=== PATIENT | female | born 1945 | race Caucasian/White ===

== ENCOUNTER 2016-12-03 08:00 | Outpatient (CLI) | payer MEDICARE, OTHER | END 2016-12-03 08:01 | disposition home or self-care (01) | DX: E11.9 Type 2 diabetes mellitus without complications (principal); R89.9 Unspecified abnormal finding in specimens from other organs, systems and tissues ==

== ENCOUNTER 2017-03-30 12:46 | Outpatient (CLI) | payer MEDICARE, OTHER ==
[2017-03-30 18:35] LABS: HEMOGLOBIN A1C 0.6 g/dL
[2017-03-30 18:43] LABS: CALCIUM 9.3 mg/dL (8.5-10.3); POTASSIUM 4.3 mmol/L (3.5-5.0)
== END 2017-03-30 12:47 | disposition home or self-care (01) ==
LOC: LAB.F 12:46
PROVIDERS: ATTEND Physician Assistant Medical
DX: E11.9 Type 2 diabetes mellitus without complications (principal); I10 Essential (primary) hypertension
CPT/HCPCS: 36415; 80048; 82043; 82570; 83036

== ENCOUNTER 2017-04-06 11:14 | Outpatient (CLI) | payer MEDICARE, OTHER ==
--- NOTE | 2017-04-08 08:57 | Mammography Report ---
DIGITAL BILATERAL SCREENING MAMMOGRAPHY: 04/06/2017 CLINICAL HISTORY: This is a 72-year-old female in for routine screening mammogram. Patient has no f amily history of breast cancer. Patient has had no prior breast surgeries. COMPARISON: 03/24/2009, 05/22/2010, 09/28/2011, 07/29/2013, 08/08/2014 TECHNIQUE: Craniocaudad and oblique lateral views of each breast were obtained with [facility] digital mammography. Because the patient had such large breasts, several additional oblique later al and craniocaudad views had to be obtained. FINDINGS: Extremely dense breasts are noted bilaterally. No significant clusters of calcification a re seen. No significant masses are noted. No change is seen. IMPRESSION: BREASTS APPEAR RADIOGRAPHICALLY BENIGN. BIRADS CATEGORY 1 - NEGATIVE. RECOMMENDATIONS: Annual bilateral screening mammography. STANDARD QUALIFYING STATEMENTS 1. This examination was reviewed with the aid of Computer-Aided Detection (CAD). 2. A negative or benign imaging report should not delay biopsy if clinically suspicious findings are present. Consider surgical consultation if warranted. More than 5% of cancers are not identified by i ing. 3. Dense breasts may obscure an underlying neoplasm. JOB #: [id number] EXT JOB #:[id number]
== END 2017-04-06 11:15 | disposition home or self-care (01) ==
LOC: DI 11:14
PROVIDERS: ATTEND Family Medicine
DX: Z12.31 Encounter for screening mammogram for malignant neoplasm of breast (principal)
CPT/HCPCS: 77067

== ENCOUNTER 2018-01-04 08:27 | Outpatient (CLI) | payer MEDICARE, OTHER ==
[2018-01-04 11:11] LABS: BASOPHILS % (AUTO) 0.4 %; EOSINOPHILS # (AUTO) 0.2 10^3/uL (0.0-0.7); EOSINOPHILS % (AUTO) 2.9 %; HGB - HEMOGLOBIN 13.2 g/dL (12.0-16.0); LYMPHOCYTES # (AUTO) 1.9 10^3/uL (1.5-3.5); LYMPHOCYTES % (AUTO) 23.2 %; MEAN CORPUSCULAR HEMOGLOBIN 28.4 pg (27.0-31.0); MEAN CORPUSCULAR HGB CONC 34.2 g/dL (32.0-36.0); MEAN PLATELET VOLUME 9.3 fL (7.9-10.8); MONOCYTES # (AUTO) 0.5 10^3/uL (0.0-1.0); MONOCYTES % (AUTO) 5.8 %; NEUTROPHILS # (AUTO) 5.6 10^3/uL (1.5-6.6); NEUTROPHILS % (AUTO) 67.7 %; PLT - PLATELET COUNT 220 10^3/uL (130-450); RED BLOOD COUNT 4.66 10^6/uL (4.20-5.40); RED CELL DISTRIBUTION WIDTH 13.9 % (12.0-15.0); WHITE BLOOD COUNT 8.3 x10^3/uL (4.8-10.8)
[2018-01-04 11:23] LABS: ALBUMIN/GLOBULIN RATIO 1.3 (1.0-2.2); ALKALINE PHOSPHATASE 83 IU/L (42-121); ALT ALANINE AMINOTRANSFERASE 19 IU/L (10-60); AST ASPARTATE AMINOTRANSFERASE 24 IU/L (10-42); BUN - BLOOD UREA NITROGEN 16 mg/dL (6-20); CALCIUM 9.1 mg/dL (8.5-10.3); CARBON DIOXIDE - CO2 26 mmol/L (21-32); CHLORIDE 103 mmol/L (101-111); CHOL/HDL RATIO 4.2 (<4.4); CHOLESTEROL 192 mg/dL; CREATININE 0.9 mg/dL (0.4-1.0); GFR - MDRD 62 (>89); GLUCOSE 141 mg/dL (70-100); HB2 TOTAL 14.7 g/dL; HDL CHOLESTEROL 46 mg/dL; HEMOGLOBIN A1C 0.7 g/dL; HEMOGLOBIN A1C % 6.5 % (4.6-6.2); LDL CHOLESTEROL,CALCULATED 114 mg/dL; LDL/HDL RATIO 2.5 (<4.4); SODIUM 138 mmol/L (135-145); VLDL CHOLESTEROL 32 mg/dL
== END 2018-01-04 08:28 | disposition home or self-care (01) ==
LOC: LAB.F 08:27
PROVIDERS: ATTEND Family Medicine
DX: I10 Essential (primary) hypertension (principal); E11.9 Type 2 diabetes mellitus without complications; E78.5 Hyperlipidemia, unspecified
CPT/HCPCS: 36415; 80053; 80061; 82043; 83036; 83721; 85025

== ENCOUNTER 2018-07-21 09:16 | Outpatient (CLI) | payer MEDICARE, OTHER ==
[2018-07-21 18:55] LABS: HB2 TOTAL 14.5 g/dL; HEMOGLOBIN A1C 0.64 g/dL; HEMOGLOBIN A1C % 6.2 % (4.6-6.2)
[2018-07-21 19:05] LABS: CHOLESTEROL 215 mg/dL; HDL CHOLESTEROL 54 mg/dL; LDL CHOLESTEROL,CALCULATED 127 mg/dL; LDL/HDL RATIO 2.4 (<4.4); VLDL CHOLESTEROL 34 mg/dL
== END 2018-07-21 09:17 | disposition home or self-care (01) ==
LOC: LAB.F 09:16
PROVIDERS: ATTEND Physician Assistant Medical
DX: E11.9 Type 2 diabetes mellitus without complications (principal)
CPT/HCPCS: 36415; 80061; 83036; 83721

== ENCOUNTER 2018-09-06 13:09 | Outpatient (CLI) | payer MEDICARE, OTHER ==
[2018-09-06 18:24] LABS: ALBUMIN 4.1 g/dL (3.2-5.5); ALBUMIN/GLOBULIN RATIO 1.3 (1.0-2.2); BILIRUBIN,TOTAL 0.9 mg/dL (0.2-1.0); CALCIUM 9.5 mg/dL (8.5-10.3); TOTAL PROTEIN 7.2 g/dL (6.7-8.2)
[2018-09-06 18:25] LABS: TROPONIN I < 0.04 ng/mL (<0.49)
[2018-09-06 18:27] LABS: CREATINE KINASE MB 1.4 ng/mL (0.6-6.3)
== END 2018-09-06 13:10 | disposition home or self-care (01) ==
LOC: LAB.F 13:09
PROVIDERS: ATTEND Physician Assistant Medical
DX: E11.9 Type 2 diabetes mellitus without complications (principal)
CPT/HCPCS: 36415; 80053; 82553; 84484; 85379

== ENCOUNTER 2019-01-19 13:03 | Outpatient (CLI) | payer MEDICARE, OTHER ==
--- NOTE | 2019-01-19 14:50 | Mammography Report ---
Reason: BREAST LUMP OR MASS Procedure Date: 01/19/2019 Accession Number: [id number] / [id number] Procedure: LETICIA - Diagnostic Dig Bilat CPT Code: FULL RESULT: EXAM: Diagnostic Dig Bilat DATE: 01/19/2019 2:38 PM CLINICAL HISTORY: Palpable lump in the left breast felt by the physician. TECHNIQUE: Bilateral CC, MLO, laterally exaggerated CC on the left and medially exaggerated CC on the right as well as a cleavage view were obtained. COMPARISON: 04/06/2017 through 09/28/2011. FINDINGS: The breasts demonstrate extremely dense parenchyma bilaterally, limiting the sensitivity of mammography. Coarse typically benign calcifications are identified. No suspicious mass, architectural distortion or calcifications are seen. IMPRESSION: Benign findings RECOMMENDATION: Recommend routine annual Screening mammography unless otherwise clinically indicated. BIRADS CATEGORY 2: Benign findings STANDARD QUALIFYING STATEMENTS: 1. This examination was not reviewed with the aid of Computer-Aided Detection (CAD). 2. A negative or benign imaging report should not delay biopsy if clinically suspicious findings are present. Consider surgical consultation if warrented. More than 5% of cancers are not identified by imaging. 3. Dense breasts may obscure an underlying neoplasm. 4. This examination was reviewed with the aid of 3D imaging (tomography).
== END 2019-01-19 13:04 | disposition home or self-care (01) ==
LOC: DI 13:03
PROVIDERS: ATTEND Physician Assistant Medical
DX: N63.23 Unspecified lump in the left breast, lower outer quadrant (principal)
CPT/HCPCS: 77062; 77066

== ENCOUNTER 2019-04-26 09:41 | Outpatient (CLI) | payer MEDICARE, OTHER ==
[2019-04-26 17:30] LABS: BASOPHILS # (AUTO) 0.1 10^3/uL (0.0-0.1); EOSINOPHILS # (AUTO) 0.4 10^3/uL (0.0-0.7); EOSINOPHILS % (AUTO) 5.3 %; HGB - HEMOGLOBIN 13.3 g/dL (12.0-16.0); LYMPHOCYTES # (AUTO) 1.7 10^3/uL (1.5-3.5); LYMPHOCYTES % (AUTO) 24.8 %; MEAN CORPUSCULAR HGB CONC 33.6 g/dL (32.0-36.0); MEAN CORPUSCULAR VOLUME 83.4 fL (81.0-99.0); MEAN PLATELET VOLUME 9.7 fL (7.9-10.8); MONOCYTES # (AUTO) 0.5 10^3/uL (0.0-1.0); MONOCYTES % (AUTO) 6.7 %; NEUTROPHILS # (AUTO) 4.2 10^3/uL (1.5-6.6); NEUTROPHILS % (AUTO) 62.2 %; PLT - PLATELET COUNT 253 10^3/uL (130-450); RED BLOOD COUNT 4.75 10^6/uL (4.20-5.40); RED CELL DISTRIBUTION WIDTH 14.3 % (12.0-15.0); WHITE BLOOD COUNT 6.8 x10^3/uL (4.8-10.8)
[2019-04-26 17:38] LABS: CREATININE,URINE 71.4 mg/dL; MICROALBUM/CREATININE RATIO,UR 5.6 ug/mg (<30.0); MICROALBUMIN,URINE 0.4 mg/dL (0-300.0)
[2019-04-26 17:41] LABS: BUN - BLOOD UREA NITROGEN 16 mg/dL (6-20); CALCIUM 9.3 mg/dL (8.5-10.3); CARBON DIOXIDE - CO2 26 mmol/L (21-32); CHLORIDE 105 mmol/L (101-111); CHOL/HDL RATIO 5.8 (<4.4); CHOLESTEROL 282 mg/dL; GFR - MDRD 54 (>89); GLUCOSE 129 mg/dL (70-100); HDL CHOLESTEROL 49 mg/dL; LDL CHOLESTEROL,CALCULATED 203 mg/dL; LDL/HDL RATIO 4.1 (<4.4); SODIUM 139 mmol/L (135-145); VLDL CHOLESTEROL 30 mg/dL
[2019-04-27 19:31] LABS: HB2 TOTAL 14.6 g/dL; HEMOGLOBIN A1C 0.63 g/dL; HEMOGLOBIN A1C % 6.1 % (4.6-6.2)
== END 2019-04-26 09:42 | disposition home or self-care (01) ==
LOC: LAB.F 09:41
PROVIDERS: ATTEND Physician Assistant Medical
DX: E11.9 Type 2 diabetes mellitus without complications (principal); E78.5 Hyperlipidemia, unspecified; I10 Essential (primary) hypertension
CPT/HCPCS: 36415; 80048; 80061; 81599; 82043; 82570; 83036; 83721; 85025

== ENCOUNTER 2019-07-25 08:00 | Outpatient (CLI) | payer MEDICARE, OTHER ==
[2019-07-25 22:14] LABS: CANDIDA GROUP DNA POSITIVE (NEGATIVE); CANDIDA KRUSEI DNA NEGATIVE (NEGATIVE); TRICHOMONAS VAGINALIS DNA NEGATIVE (NEGATIVE)
== END 2019-07-25 23:59 | disposition home or self-care (01) ==
LOC: LAB.R 08:00
PROVIDERS: ATTEND Obstetrics & Gynecology
DX: N95.0 Postmenopausal bleeding (principal)
CPT/HCPCS: 87661; 87801

== ENCOUNTER 2019-07-26 12:37 | Outpatient (CLI) | payer MEDICARE, OTHER ==
--- NOTE | 2019-07-27 06:33 | Ultrasound Report ---
Reason: POST MENOPAUSAL BLEEDING Procedure Date: 07/26/2019 Accession Number: [id number] / [id number] Procedure: US - Pelvic w/Transvaginal CPT Code: FULL RESULT: EXAM: PELVIC ULTRASOUND WITH TRANSVAGINAL EXAM DATE: 07/26/2019 03:53 PM. CLINICAL HISTORY: POST MENOPAUSAL BLEEDING. COMPARISON: PELVIC W/TRANSVAGINAL 07/25/2019 3:35 PM PELVIS 08/22/2013 4:21 PM. TECHNIQUE: Realtime transabdominal pelvic scan performed to identify the uterus and adnexa and as an overview of other pelvic structures, followed by transvaginal scan to provide greater detail of the uterus and adnexa, with static image documentation. FINDINGS: Uterus: 8.5 x 3.6 x 5.4 cm, volume 86 cc. Anteverted position. Echogenic uterine fibroids seen anteriorly in the body and fundus of the myometrium, intramural, measures 1.4 x 0.8 x 1.1 cm. Mildly heterogeneous myometrium. Posterior body subserosal uterine fibroid measuring 8 mm. Endometrium: 9.3 mm. Thickened endometrium. Echogenicity is seen within the endometrial cavity measuring 3.2 x 0.8 x 2.1 cm, contains a few vascular areas as well as cystic areas. This could represent blood clot versus endometrial malignant mass versus endometrial polyp. Further workup is recommended. There is free fluid surrounding this echogenic structure within the endometrial cavity. Cervix: 1.2 cm nabothian cyst. Right Ovary: 1.4 x 0.8 x 1.6 cm, volume 0.94 cc. Normal echotexture and blood flow. Left Ovary: 1.4 x 1.1 x 1.5 cm, volume 1.2 cc. Normal echotexture and blood flow. Free Fluid: None. IMPRESSION: 1. Thickened endometrium. Echogenicity is seen within the endometrial cavity measuring 3.2 x 0.8 x 2.1 cm, contains a few vascular areas as well as cystic areas. This could represent blood clot versus endometrial malignant mass versus endometrial polyp. Further workup is recommended. There is free fluid surrounding this echogenic structure within the endometrial cavity. 2. Uterine fibroids. See above. RADIA The call report notification system was initiated by Dr. Tanja Lott at 04:25 PM on 07/26/2019. The above call report findings were discussed with DR. TEJADA by Dr. Tanja Lott at 04:31 PM on 07/26/2019.
== END 2019-07-26 12:38 | disposition home or self-care (01) ==
LOC: DI 12:37
PROVIDERS: ATTEND Obstetrics & Gynecology
DX: R93.89 Abnormal findings on diagnostic imaging of other specified body structures (principal); D25.2 Subserosal leiomyoma of uterus; D25.1 Intramural leiomyoma of uterus
CPT/HCPCS: 76830; 76856

== ENCOUNTER 2019-07-31 10:17 | Outpatient (CLI) | payer MEDICARE, OTHER | END 2019-07-31 10:18 | disposition critical access hospital (66) | LOC: EMS 10:17 | PROVIDERS: ATTEND Surgery | DX: M79.605 Pain in left leg (principal); M79.604 Pain in right leg; M79.89 Other specified soft tissue disorders | CPT/HCPCS: A0425; A0429 ==

== ENCOUNTER 2019-07-31 10:42 | Emergency (ER) | payer MEDICARE, OTHER ==
[2019-07-31 11:37] LABS: BASOPHILS % (AUTO) 0.7 %; EOSINOPHILS # (AUTO) 0.2 10^3/uL (0.0-0.7); EOSINOPHILS % (AUTO) 3.6 %; HGB - HEMOGLOBIN 11.2 g/dL (12.0-16.0); LYMPHOCYTES # (AUTO) 1.6 10^3/uL (1.5-3.5); LYMPHOCYTES % (AUTO) 27.9 %; MEAN CORPUSCULAR HEMOGLOBIN 27.2 pg (27.0-31.0); MEAN CORPUSCULAR HGB CONC 32.1 g/dL (32.0-36.0); MEAN CORPUSCULAR VOLUME 84.7 fL (81.0-99.0); MEAN PLATELET VOLUME 10.8 fL (7.9-10.8); MONOCYTES # (AUTO) 0.5 10^3/uL (0.0-1.0); MONOCYTES % (AUTO) 9.2 %; NEUTROPHILS # (AUTO) 3.4 10^3/uL (1.5-6.6); NEUTROPHILS % (AUTO) 58.1 %; PLT - PLATELET COUNT 237 10^3/uL (130-450); RED BLOOD COUNT 4.12 10^6/uL (4.20-5.40); RED CELL DISTRIBUTION WIDTH 13.6 % (12.0-15.0); WHITE BLOOD COUNT 5.8 x10^3/uL (4.8-10.8)
[2019-07-31 11:50] LABS: BILIRUBIN,URINE NEGATIVE (NEGATIVE); GLUCOSE, URINE (UA) NEGATIVE (NEGATIVE); KETONES,URINE (UA) NEGATIVE (NEGATIVE); LEUKOCYTE ESTERASE, URINE SMALL (NEGATIVE); NITRITE,URINE POSITIVE (NEGATIVE); OCCULT BLOOD,URINE TRACE-INTA (NEGATIVE); PH,URINE 6.5 PH (5.0-7.5); PROTEIN,URINE NEGATIVE (NEGATIVE); UROBILINOGEN,URINE 0.2 (NORMAL) E.U./dL (NORMAL)
[2019-07-31 11:53] LABS: ALBUMIN 3.7 g/dL (3.2-5.5); ALBUMIN/GLOBULIN RATIO 1.2 (1.0-2.2); BILIRUBIN,TOTAL 0.6 mg/dL (0.2-1.0); CALCIUM 9.3 mg/dL (8.5-10.3); TOTAL PROTEIN 6.7 g/dL (6.7-8.2)
[2019-07-31 11:54] LABS: CLARITY,URINE HAZY (CLEAR)
[2019-07-31 12:11] LABS: RBC,URINE 0-5 /HPF (0-5)
[2019-07-31 12:12] LABS: BACTERIA,URINE Moderate /HPF (None Seen); SQUAMOUS EPITHELIAL CELL,UR FEW Squamous (<= Few)
[2019-07-31] MEDS ORDERED: oxyCODONE 5 MG TABLET PO STA (12:28)
[2019-07-31] MEDS ORDERED: ONDANSETRON ODT 4 MG TABLET TL STA (12:28)
[2019-07-31] MEDS ORDERED: SULFAMETH/TRIMETH DS 800/160 MG TABLET PO STA (12:30)
--- NOTE | 2019-07-31 12:35 | ED Physician Documentation ---
History of Present Illness - Stated complaint Stated Complaint: OSWALDO LEG SWELLING - Chief complaint Chief Complaint: Ext Problem - History obtained from History obtained from: Patient - History of Present Illness Timing: Other (74-year-old woman with history of controlled diabetes, extensive back surgeries remotely, complains of leg pain that is been increasing for the last 2 months. The hip pain is from the hips down, everything is below the waist. Slightly worse on the right than the left. She denies weakness, numbness, or tingling. Its worse after activity and better after rest. She is tried Aleve for it which is a little bit helpful, but she feels like the help from that is wearing off. She denies fevers or chills. Of note during this timeframe her 's been pretty much in the hospital the whole time and she is been living on a cot in the hospital. Her restless legs are also worse than they have been in the past.) Review of Systems Ten Systems: 10 systems reviewed and negative Constitutional: denies: Fever, Chills Cardiac: denies: Chest pain / pressure, Palpitations Respiratory: denies: Dyspnea, Cough GI: denies: Abdominal Pain, Nausea, Vomiting PD PAST MEDICAL HISTORY - Past Medical History Past Medical History: No Endocrine/Autoimmune: Type 2 diabetes Musculoskeletal: Osteoarthritis, Chronic back pain - Past Surgical History Ortho: Spine surgery - Present Medications Home Medications: Ambulatory Orders Medication Instructions Recorded Confirmed Nitrofurantoin Monohyd/M-Cryst 100 mg PO BID #10 capsule 07/31/19 [Macrobid 100 mg Capsule] Ondansetron Odt [Zofran] 4 mg TL Q6H PRN #10 tablet 07/31/19 Oxycodone HCl/Acetaminophen 1 - 2 each PO Q6H PRN #14 tablet 07/31/19 [Percocet 5-325 mg Tablet] RX: Gabapentin 100 mg PO 07/31/19 RX: Lisinopril 40 mg PO 07/31/19 RX: Metoprolol Succinate 25 mg PO 07/31/19 RX: Pramipexole [Mirapex] 0.75 mg PO 07/31/19 RX: Venlafaxine ER [Effexor ER] 150 mg PO 07/31/19 RX: metFORMIN [Glucophage] 500 mg PO 07/31/19 RX: predniSONE [Deltasone] 20 mg PO 0800 #14 tablet 07/31/19 SITagliptin [Januvia] 100 mg PO 07/31/19 - Allergies Allergies/Adverse Reactions: Allergies Allergy/AdvReac Type Severity Reaction Status Date / Time codeine Allergy Anaphylaxis Verified 07/31/19 11:00 morphine Allergy Anaphylaxis Verified 07/31/19 11:00 Penicillins Allergy Itching Verified 07/31/19 11:00 - Social History Does the pt smoke?: No Smoking Status: Never smoker - Family History Family history: reports: Non contributory PD ED PE NORMAL - Vitals Vital signs reviewed: Yes - General General: Alert and oriented X 3, Other (For the most part she is comfortable at rest but her legs are twitchy consistent with restless legs.) - HEENT HEENT: PERRL, EOMI - Neck Neck: Supple, no meningeal sign, No bony TTP - Cardiac Cardiac: RRR, No murmur - Respiratory Respiratory: No respiratory distress, Clear bilaterally - Abdomen Abdomen: Non tender - Extremities Extremities: Other (No specific tender spot in her legs. Her feet are a little edematous. They are warm and well perfused. Passive range of motion in the major joints is painless.) - Neuro Neuro: Alert and oriented X 3, Normal speech Results - Vitals Vitals: Vital Signs - 24 hr 07/31/19 07/31/19 07/31/19 10:57 11:48 14:25 Temperature 36.4 C L Heart Rate 71 62 66 Respiratory 19 16 16 Rate Blood Pressure 133/65 H 155/80 H 145/73 H O2 Saturation 100 98 99 Oxygen O2 Source Room air - Labs Labs: Laboratory Tests 07/31/19 07/31/19 07/31/19 11:15 11:15 11:33 WBC 5.8 RBC 4.12 L Hgb 11.2 L Hct 34.9 L MCV 84.7 MCH 27.2 MCHC 32.1 RDW 13.6 Plt Count 237 MPV 10.8 Neut # (Auto) 3.4 Lymph # (Auto) 1.6 Taylor # (Auto) 0.5 Eos # (Auto) 0.2 Baso # (Auto) 0.0 Absolute Nucleated RBC 0.00 Nucleated RBC % 0.0 ESR 34 H Sodium Potassium Chloride Carbon Dioxide Anion Gap BUN Creatinine Estimated GFR (MDRD) Glucose Calcium Total Bilirubin AST ALT Alkaline Phosphatase C-Reactive Protein 2.6 H B-Natriuretic Peptide Total Protein Albumin Globulin Albumin/Globulin Ratio Lipase Urine Color Urine Clarity Urine pH Ur Specific [place] Urine Protein Urine Glucose (UA) Urine Ketones Urine Occult Blood Urine Nitrite Urine Bilirubin Urine Urobilinogen Ur Leukocyte Esterase Urine RBC Urine WBC Ur Squamous Epith Cells Urine Bacteria Ur Microscopic Review Urine Culture Comments 07/31/19 07/31/19 07/31/19 11:33 11:33 11:45 WBC RBC Hgb Hct MCV MCH MCHC RDW Plt Count MPV Neut # (Auto) Lymph # (Auto) Taylor # (Auto) Eos # (Auto) Baso # (Auto) Absolute Nucleated RBC Nucleated RBC % ESR Sodium 138 Potassium 4.3 Chloride 102 Carbon Dioxide 27 Anion Gap 9.0 BUN 16 Creatinine 1.0 Estimated GFR (MDRD) 54 L Glucose 113 H Calcium 9.3 Total Bilirubin 0.6 AST 15 ALT 12 Alkaline Phosphatase 91 C-Reactive Protein B-Natriuretic Peptide 73 Total Protein 6.7 Albumin 3.7 Globulin 3.0 Albumin/Globulin Ratio 1.2 Lipase 21 L Urine Color YELLOW Urine Clarity HAZY Urine pH 6.5 Ur Specific [place] 1.010 Urine Protein NEGATIVE Urine Glucose (UA) NEGATIVE Urine Ketones NEGATIVE Urine Occult Blood TRACE-INTA Urine Nitrite POSITIVE H Urine Bilirubin NEGATIVE Urine Urobilinogen 0.2 (NORMAL) Ur Leukocyte Esterase SMALL H Urine RBC 0-5 Urine WBC 4-5 Ur Squamous Epith Cells FEW Squamous Urine Bacteria Moderate H Ur Microscopic Review INDICATED Urine Culture Comments INDICATED - Rads (name of study) B Knee and B hip XR Radiology: EMP read contemporaneously (No acute abnormality, severe right hip DJD, she also has DJD elsewhere and osteopenia.) PD MEDICAL DECISION MAKING - ED course ED course: 74-year-old woman with diffuse lower extremity pain, could be related to her severe right hip osteoarthritis, she admits the right is worse than the left, autoimmune conditions such as PMR is also considered but it would be atypical his pain is better after rest and only involves the leg. Her inflammatory markers are slightly elevated and she has evidence of UTI here and she felt much better after oxycodone. Departure - Departure Disposition: 01 Home, Self Care Clinical Impression: Right leg pain, Left leg pain, Osteoarthritis of right hip, Elevated julia throcyte sedimentation rate, UTI (urinary tract infection) Condition: Good Record reviewed to determine appropriate education?: Yes Instructions: ED Muscle Pain Leg Cramps Prescriptions: Nitrofurantoin Monohyd/M-Cryst [Macrobid 100 mg Capsule] 100 mg PO BID #10 capsule Ondansetron Odt [Zofran] 4 mg TL Q6H PRN #10 tablet PRN Reason: Nausea / Vomiting Oxycodone HCl/Acetaminophen [Percocet 5-325 mg Tablet] 1 - 2 each PO Q6H PRN #14 tablet PRN Reason: pain RX: predniSONE [Deltasone] 20 mg PO 0800 #14 tablet Comments: You do have terrible arthritis on the x-ray in your right hip. You also have mildly elevated inflammatory markers which would suggest an autoimmune or rheumatologic problem for which the steroid should be very helpful. Follow-up with your doctor, next available appointment. Return for new worsening symptoms.
--- NOTE | 2019-07-31 13:52 | XRAY Report ---
Reason: leg pain Procedure Date: 07/31/2019 Accession Number: [id number] / [id number] Procedure: XR - Hips 2V BILAT CPT Code: FULL RESULT: EXAM: BILATERAL HIP RADIOGRAPHY EXAM DATE: 07/31/2019 01:15 PM. CLINICAL HISTORY: Leg pain. COMPARISON: None. TECHNIQUE: AP view of the pelvis. Frog leg view of each bilateral hip. FINDINGS: Bones: No fractures or bone lesions. Bones appear osteopenic. Joints: Advanced right hip joint DJD. Mild left hip joint DJD. Soft Tissues: Small linear radiodensity projects over the lower sacrum possibly surgical clip. IMPRESSION: 1. No acute osseous abnormality. 2. DJD. Osteopenia. RADIA
--- NOTE | 2019-07-31 13:54 | XRAY Report ---
Reason: leg pain Procedure Date: 07/31/2019 Accession Number: [id number] / [id number] Procedure: XR - Knee 2 View BILAT CPT Code: FULL RESULT: EXAMS: 1. Right Knee Radiography 2. Left Knee Radiography EXAM DATE:07/31/2019 01:15 PM. CLINICAL HISTORY:Leg pain. COMPARISON: None. TECHNIQUE: 2 views each. FINDINGS: Right Knee: Bones: Bones appear osteopenic. No fracture or bone lesion. Joints: Joint spaces are preserved. Minimal intercondylar, patellofemoral spurring. No significant joint effusion. Faint meniscal chondrocalcinosis. Soft Tissues: Normal. No soft tissue swelling. Left Knee: Bones: Bones appear osteopenic no fracture or bone lesion. Joints: Joint spaces are preserved. We'll intercondylar, patellofemoral spurring. No significant joint effusion. Soft Tissues: Normal. No soft tissue swelling. IMPRESSION: 1. No definite acute osseous abnormality. 2. Osteopenia. DJD. RADIA
[2019-07-31] MEDS ORDERED: predniSONE 20 MG TABLET PO STA (14:17)
[2019-07-31 14:27] VITALS: BP 145/73
--- NOTE | 2019-07-31 14:29 | Ultrasound Report ---
Reason: leg pain Procedure Date: 07/31/2019 Accession Number: [id number] / [id number] Procedure: US - Duplex Ext Veins Bilateral CPT Code: FULL RESULT: EXAM: BILATERAL LOWER EXTREMITY VENOUS ULTRASOUND EXAM DATE: 07/31/2019 02:12 PM. CLINICAL HISTORY: Leg pain. COMPARISON: None. TECHNIQUE: Real-time sonographic vascular imaging was performed by the line locator through the lower extremities utilizing both color-flow and Doppler spectral analysis. Multiple parts counter representative static images were saved for review. FINDINGS: Right: Common Femoral Vein (CFV): Normal. CFV-GSV Junction: Normal. Profunda Femoral Vein (PFV): Normal. Femoral Vein (FV) Prox: Normal. Femoral Vein (FV) Mid: Normal. Femoral Vein (FV) Dist: Normal. Popliteal Vein: Normal. Posterior Tibial Veins: Normal. Peroneal Veins: Normal. Left: Common Femoral Vein (CFV): Normal. CFV-GSV Junction: Normal. Profunda Femoral Vein (PFV): Normal. Femoral Vein (FV) Prox: Normal. Femoral Vein (FV) Mid: Normal. Femoral Vein (FV) Dist: Normal. Popliteal Vein: Normal. Posterior Tibial Veins: Normal. Peroneal Veins: Normal. Other: None. IMPRESSION: No evidence for deep venous thrombosis bilaterally. RADIA
== END 2019-07-31 14:46 | disposition home or self-care (01) ==
LOC: EDUNIT# → ED 10:42
DX: M16.0 Bilateral primary osteoarthritis of hip (principal); M17.0 Bilateral primary osteoarthritis of knee; M85.89 Other specified disorders of bone density and structure, multiple sites; G25.81 Restless legs syndrome; R70.0 Elevated erythrocyte sedimentation rate; N39.0 Urinary tract infection, site not specified; E11.9 Type 2 diabetes mellitus without complications; Z79.84 Long term (current) use of oral hypoglycemic drugs
CPT/HCPCS: 36415; 73521; 73565; 80053; 81001; 83690; 83880; 85025; 85651; 86140; 87077; 87086; 87181; 93970; 99284; A9270; J7512; Q0162; 81003

== ENCOUNTER 2019-08-14 16:30 | Outpatient (CLI) | payer MEDICARE, OTHER ==
--- NOTE | 2019-08-16 22:25 | XRAY Report ---
Reason: HTN Procedure Date: 08/14/2019 Accession Number: [id number] / [id number] Procedure: XR - Chest 2 View X-Ray CPT Code: 12609 FULL RESULT: EXAM: CHEST RADIOGRAPHY EXAM DATE: 08/14/2019 04:56 PM. CLINICAL HISTORY: Hypertension. Has surgery tomorrow. COMPARISON: XR CHEST PA AND LAT 01/30/2008 12:51 PM. TECHNIQUE: 2 views. FINDINGS: Lungs/Pleura: No focal opacities evident. No pleural effusion. No pneumothorax. Normal volumes. Mediastinum: Heart and mediastinal contours are unremarkable. Other: None. IMPRESSION: Normal 2-view chest radiography. RADIA
== END 2019-08-14 16:31 | disposition home or self-care (01) ==
LOC: DI 16:30
PROVIDERS: ATTEND Obstetrics & Gynecology
DX: Z01.818 Encounter for other preprocedural examination (principal); N95.0 Postmenopausal bleeding; R93.89 Abnormal findings on diagnostic imaging of other specified body structures; I10 Essential (primary) hypertension
CPT/HCPCS: 71046; 93005

== ENCOUNTER 2019-08-15 10:25 | Day surgery (SDC) | payer MEDICARE, OTHER ==
--- NOTE | 2019-08-15 00:49 | HISTORY & PHYSICAL EXAMINATION ---
HPI - History of Present Illness HPI Comment/Other: HPI: Patient is here today for a pre op for a hysteros copy....................................................................Stephen Bhat MA August 13, 2019 3:08 PM Ms. Espinosa is a 74-year-old G1, P1 here for preoperative assessment for hyste roscopy D&C. She was last seen in clinic on 07/25/2019 for postmenopausal bleeding. At that time her had been entering hospice and she had been under significant amount of stress. Since she was last seen in clinic, her has passed. She has continued to have some vaginal bleeding. She had a pelvic ultrasound done on 07/26/2019. It showed a thickened endometrium with echogenicity within the endometrial cavity. This measured 3.2 x 0.8 x 2.1 cm. Also contained a few vascular areas as well as cystic areas. Medical history is complicated by type 2 diabetes and an elevated BMI. 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 Weight loss attributed to stress. She has lost about 7 pounds since her last visit. She has recently been diagnosed with a urinary tract infection. Otherwise no changes in health history other than as noted in HPI. Allergies: CODEINE (Critical) PENICILLIN V POTASSIUM (Critical) MORPHINE (Critical) * MELOXICAM/MOBIC (Severe) Medications: CELECOXIB 200 MG ORAL CAPSULE (CELECOXIB) Take one tablet by mouth once daily for arthritis; Route: ORAL ONDANSETRON 4 MG ORAL TABLET DISINTEGRATING (ONDANSETRON) ; Route: ORAL FLUCONAZOLE 150 MG ORAL TABLET (FLUCONAZOLE) Take 1 tablet by mouth every 3 days for 2 doses; Route: ORAL METOPROLOL SUCCINATE ER 25 MG ORAL TABLET EXTENDED RELEASE 2 (METOPROLOL SUCCINATE) Take one tablet by mouth daily in the evening; Route: ORAL VENLAFAXINE HCL ER 75 MG TT90H-VMV (VENLAFAXINE HCL) take 2 capsules by mouth daily MUPIROCIN 2 % EXTERNAL OINTMENT (MUPIROCIN) Apply to toenail border daily; Route: EXTERNAL JANUVIA 100 MG TABLET (SITAGLIPTIN PHOSPHATE) take 1 tablet by mouth every morning METFORMIN HCL 500 MG TABLET (METFORMIN HCL) take 1 tablet by mouth twice a day PRAMIPEXOLE DIHYDROCHLORIDE 0.75 MG ORAL TABLET (PRAMIPEXOLE DIHYDROCHLORIDE) Take one and one-half tablet 2-3 hours before bed time; Route: ORAL NYSTATIN-TRIAMCINOLONE 209172-3.1 UNIT/GM-% EXTERNAL CREAM (NYSTATIN- TRIAMCINOLONE) apply sparingly to effected areas 2 x daily; Route: EXTERNAL ECONAZOLE NITRATE 1 % EXTERNAL CREAM (ECONAZOLE NITRATE) apply sparingly twice daily to affected skin PRAVACHOL 40 MG ORAL TABLET (PRAVASTATIN SODIUM) Take one tablet by mouth every evening for high cholesterol; Route: ORAL FLUOCINONIDE 0.05 % EXTERNAL OINTMENT (FLUOCINONIDE) apply to itchy ear bid prn LISINOPRIL 40 MG ORAL TABLET (LISINOPRIL) Take one tablet by mouth daily in the morning for high blood pressure; Route: ORAL GINI CONTOUR TEST IN VITRO STRIP (GLUCOSE BLOOD) Use to test blood sugar once daily. Dx: E11.9 Duration of use: Lifetime, 99 mos; Route: IN VITRO Problems: Preop exam (ICD-V72.84) (EOA06-O50.818) Grief reaction (ICD-309.0) (BUG15-G14.20) Hip joint pain, right (ICD-719.45) (AQT63-K28.551) Arthritis, knees, bilateral (ICD-716.98) (DYA48-M37.0) Vaginal discharge (ICD-623.5) (KCD60-T53.8) Postmenopausal bleeding (ICD-627.1) (KQI07-B68.0) Intertrigo, candidal (ICD-695.89) (FSH54-O23.2) Unspecified lump in the left breast, lower outer quadrant (TXB99-V07.23) HYPERTENSION, BENIGN ESSENTIAL (ICD-401.1) (TBB23-U50) Sx of nausea (ICD-787.02) (EHP13-H62.0) Osteoarthritis, carpometacarpal joint, left thumb (ICD-715.94) (JJH10-F05.12) DIABETES MELLITUS (ICD-250.00) (CIL67-O10.9) Psoriasis (ICD-696.1) (YBD34-C71.9) Restless leg syndrome (ICD-333.94) (SEV87-C16.81) SEBORRHEIC DERMATITIS (ICD-690.10) (VVC47-C74.9) BENIGN POSITIONAL VERTIGO (ICD-386.11) (FXO93-P73.10) ANXIETY DISORDER, GENERALIZED (ICD-300.02) (KQS81-I32.1) DEPRESSION (ICD-311) (UPB67-H41.9) OBSESSIVE-COMPULSIVE DISORDERS (ICD-300.3) (XJC89-V86) Back pain, lumbar, with radiculopathy (ICD-724.4) (NNS64-P14.16) Diabetes mellitus, type II (ICD-250.00) (SBD53-X79.9) MORBID OBESITY (ICD-278.01) (GQW69-M47.01) ALLERGIC RHINITIS (ICD-477.9) (XHF02-U85.9) HYPERLIPIDEMIA (ICD-272.4) (LHR29-P91.5) 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 Patient has never used smokeless tobacco. Passive Smoke: N Alcohol Use: Y Drug Use: N HIV/High Risk: N Regular Exercise: Y Lives in [place]. Had been living with her prior to his transfer to [facility] this week. 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 T: None E: Once in a while D: 10 mg THC nightly for restless leg syndrome Safe at home Risk Factors: Smoked Tobacco Use: Never smoker Smokeless Tobacco Use: Never Passive Smoke Exposure: no HIV High Risk Behavior: no Caffeine Use: 2-3 drinks per day Exercise: yes Times/wk: 3 Type of Exercise: walking, stretching Seatbelt Use: 100 % Sun Exposure: rarely Drug Use: no Vital Signs: Patient Profile: 74 Years Old Female Height: 67.75 inches Weight: 248.6 pounds BMI: 38.22 BP sittin / 74 Cuff size: regular Vitals Entered By: Stephen Bhat MA (August 13, 2019 3:08 PM) Meds Reviewed: Done Allergies Reviewed: Done Past Medical History: SKIN LESION (ICD-709.9) ANXIETY DISORDER, GENERALIZED (ICD-300.02) DEPRESSION (ICD-311) MENOPAUSAL SYNDROME (ICD-627.2) OBSESSIVE-COMPULSIVE DISORDERS (ICD-300.3) POSTMENOPAUSAL BLEEDING (ICD-627.1) FATIGUE (ICD-780.79) BACK PAIN, LUMBAR (ICD-724.2) METABOLIC SYNDROME X (ICD-277.7) MORBID OBESITY (ICD-278.01) DIABETES MELLITUS (ICD-250.00) HYPERTENSION, BENIGN ESSENTIAL (ICD-401.1) HYPERLIPIDEMIA (ICD-272.4) RLS Psoriasis Tinea Corporis 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 Denies any history of surgical complications. 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 Physical Constitutional: obese appearing, disheveled. Appears to be under some emotional duress. Presents with walker. Cardiovascular: RRR. Respiratory: no respiratory distress, clear to auscultation. Psych: subdued affect, depressed mood. Vulva: Vulva: normal appearance, no lesions or masses. Dry and atrophic tissue Urethra: normal. Bladder: normal. Vagina: normal. Thin and atrophic tissue curd-like white discharge. No amine odor Cervix: Pale and atrophic. Friable Uterus: mobile. Sounds to 8 cm Adnexa: Exam limited by habitus Impression & Recommendations: Problem # 1: Preop exam (ICD-V72.84) (RGU79-D53.818) Orders: PRE OP -34391 (CPT-95621) Patient presents for preoperative assessment for hysteroscopic D&C/polypectomy/myomectomy. Risks/benefits/alternatives were discussed. Written informed consent was obtained. Consent included hysteroscopy D&C with possible polypectomy and myomectomy. Given the recency of urinary tract infection, will provide preoperative antibiotics prior to procedure. Scheduled for preoperative assessment to include CMP/CBC/EKG. Scheduled for procedure on August 15, 2019. PMH/PSH - Past Medical History Endocrine/Autoimmune: positive: Type 2 diabetes Musculoskeletal: positive: Osteoarthritis, Chronic back pain - Past Surgical History Ortho: positive: Spine surgery Social & Family Hx - Social History Does the pt smoke?: No Smoking Status: Never smoker Meds/Allgy - Home Medications Home Medications: Ambulatory Orders Medication Instructions Recorded Confirmed Gabapentin 100 mg PO 07/31/19 Lisinopril 40 mg PO 07/31/19 Metoprolol Succinate 25 mg PO 07/31/19 Nitrofurantoin Monohyd/M-Cryst 100 mg PO BID #10 capsule 07/31/19 [Macrobid 100 mg Capsule] Ondansetron Odt [Zofran] 4 mg TL Q6H PRN #10 tablet 07/31/19 Oxycodone HCl/Acetaminophen 1 - 2 each PO Q6H PRN #14 tablet 07/31/19 [Percocet 5-325 mg Tablet] Pramipexole [Mirapex] 0.75 mg PO 07/31/19 SITagliptin [Januvia] 100 mg PO 07/31/19 Venlafaxine ER [Effexor ER] 150 mg PO 07/31/19 metFORMIN [Glucophage] 500 mg PO 07/31/19 predniSONE [Deltasone] 20 mg PO 0800 #14 tablet 07/31/19 - Allergies Allergies/Adverse Reactions: Allergies Allergy/AdvReac Type Severity Reaction Status Date / Time codeine Allergy Anaphylaxis Verified 07/31/19 11:00 morphine Allergy Anaphylaxis Verified 07/31/19 11:00 Penicillins Allergy Itching Verified 07/31/19 11:00
[~2019-08-15 10:25] MED LIST: ACETAMINOPHEN 1,000 MG/100 ML 100 ML IV ONE; GABAPENTIN 400 MG CAPSULE ONE
[2019-08-15] MEDS ORDERED: ACETAMINOPHEN 1,000 MG/100 ML 100 ML IV ONE (10:26)
[2019-08-15] MEDS ORDERED: ROCURONIUM 50 MG/5 ML VIAL IVP ONE (10:26)
[2019-08-15] MEDS ORDERED: PROPOFOL 200 MG/20 ML VIAL IVP ONE (10:26)
[2019-08-15] MEDS ORDERED: ONDANSETRON 4 MG/2 ML VIAL IVP ONE (10:26)
[2019-08-15] MEDS ORDERED: fentaNYL 100 MCG/2 ML VIAL IVP ONE (10:26)
[2019-08-15] MEDS ORDERED: MIDAZOLAM 2 MG/2 ML VIAL IVP ONE (10:26)
[2019-08-15] MEDS ORDERED: LACTATED RINGERS 1,000 ML IV ONE (10:39)
--- NOTE | 2019-08-15 11:33 | ANESTHESIA ---
Pre-Anesthesia VS, & Labs - Diagnosis thickened endometrium, post menopausal bleeding - Procedure myosure hysteroscopy, D&C, polypectomy Vital Signs: Temp Pulse Resp BP Pulse Ox 36.6 C 57 L 16 145/57 H 97 08/15/19 10:54 08/15/19 10:54 08/15/19 10:54 08/15/19 10:54 08/15/19 10:54 Height 5 ft 8 in Weight (kg) 111.6 kg Body Mass Index 38.0 - NPO >8 hours - Is Patient ?: No - Lab Results Current Lab Results: Laboratory Tests 08/15/19 11:01: POC Whole Bld Glucose 107 H Lab results reviewed: Yes Home Medications and Allergies Lisinopril 40 mg PO DAILY 07/31/19 Pramipexole [Mirapex] 0.75 mg PO DAILY 07/31/19 SITagliptin [Januvia] 100 mg PO DAILY 07/31/19 Venlafaxine ER [Effexor ER] 150 mg PO DAILY 07/31/19 metFORMIN [Glucophage] 500 mg PO BID 07/31/19 Allergies/Adverse Reactions: Allergies Allergy/AdvReac Type Severity Reaction Status Date / Time codeine Allergy Anaphylaxis Verified 08/15/19 11:22 morphine Allergy Anaphylaxis Verified 08/15/19 11:22 Penicillins Allergy Itching Verified 08/15/19 11:22 Anes History & Medical History - Anesthetic History Anesthesia Complications: reports: No previous complications - Medical History Cardiovascular: reports: Hypertension, High cholesterol Musculoskeletal: reports: Chronic back pain Endocrine/Autoimmune: reports: Type 2 diabetes Skin: reports: Rosacea Smoking Status: Never smoker - Surgical History General: Cholecystectomy Gynecologic: Dilation and currettage Orthopedic: Carpal Tunnel surgery, Spine surgery, Other Exam General: Alert, Oriented x3, Cooperative Dental: WNL Mouth Openin Fingerbreadth Neck Mobility: Normal Mallampati classification: II Thyromental Distance: 4-6 cm Respiratory: Lungs clear, Normal breath sounds Cardiovascular: Regular rate Neurological: Normal speech Mental/Cognitive Status: Alert/Oriented X3, Normal for patient Cognitive Status: Within normal limits Plan Anesthesia Type: General Consent for Procedure(s) Verified and Reviewed: Yes Code Status: Attempt Resuscitation ASA classification: 2-Mild systemic disease Is this case an emergency?: No
[2019-08-15] MEDS ORDERED: LIDOCAINE 1%-EPI 1:100000 30 ML MDV SUBQ ONE (14:31)
[2019-08-15] MEDS ORDERED: SILVER NITRATE APPLICATOR TOP ONE (14:45)
--- NOTE | 2019-08-15 15:27 | OPERATIVE REPORT ---
Operative Report - General Procedure Date: 08/15/19 Planned Procedure: Hysteroscopy, D&C, and possible polypectomy/myomectomy Pre-Op Diagnosis: Postmenopausal bleeding. Vascular mass within endometrium on ultrasound Procedure Performed: Hysteroscopy D&C and polypectomy - Procedure Note Pathology: Uterine contents IV Fluids (mL): 500 Estimated Blood Loss (mL): 10 Indications: Patient is a 74-year-old female with postmenopausal bleeding. Pelvic ultrasound shows thickened endometrium with an intrauterine vascular mass in the endometrial canal. Findings: Several intrauterine polyps. The largest was rooted in the right fundal portion of the uterus and extending down to the central cavity. There were 2 smaller polyps emanating from the right cornua. Bilateral tibial ostia were visualized. Post polypectomy, uterine cavity was smooth and without structural abnormality. Complications: None - Other Other Information/Narrative: Risks benefits and alternatives to the procedure were reviewed. Consent was again confirmed. Patient was taken to the operating room where she underwent general anesthesia. She was positioned in dorsolithotomy position with legs resting in yellowfin stirrups. She was prepped and draped in the usual sterile fashion. Cefazolin 2 g IV was given given recent diagnosis of culture proven urinary tract infection.. Preoperative checklist was performed. Exam under anesthesia was performed. Speculum was placed in the vagina and the cervix was visualized. Single-tooth tenaculum was placed at the anterior cervical lip. Paracervical block was administered using a total of 20 cc of 1% lidocaine with epinephrine was injected at the 4:00 and 8:00 positions lateral to the portio of the cervix. The cervical os was serially dilated with Hegar dilators to accommodate the caliber of the diagnostic hysteroscope. Uterus sounded to 9 cm. The hysteroscope was inserted and findings were noted as above. The hysteroscopic morcellator was inserted through the operative port. The intrauterine polyps were morcellated under direct visualization. Uterine cavity was smooth at close of the procedure. Hysteroscope was removed. Sharp curettage D&C was performed with sharp curettage. All instruments were removed from the uterus. Tenaculum was removed. Tenaculum sites were noted to be hemostatic. All instruments were removed from the vagina. Procedure was well-tolerated without complication. Fluid deficit:560 cc NS
[2019-08-15 16:56] VITALS: BP 154/78
== END 2019-08-15 10:26 | disposition home or self-care (01) ==
LOC: SDS 10:25
PROVIDERS: ATTEND Obstetrics & Gynecology
PROC: 0UJD8ZZ Inspection of Uterus and Cervix, Via Natural or Artificial Opening Endoscopic (ICD-10-PCS; 2019-08-15)
PROC: 0UB98ZZ Excision of Uterus, Via Natural or Artificial Opening Endoscopic (ICD-10-PCS; 2019-08-15)
PROC: 0UDB7ZX Extraction of Endometrium, Via Natural or Artificial Opening, Diagnostic (ICD-10-PCS; principal; 2019-08-15 11:30)
DX: D25.0 Submucous leiomyoma of uterus (principal); N85.00 Endometrial hyperplasia, unspecified; I10 Essential (primary) hypertension; E78.00 Pure hypercholesterolemia, unspecified; G89.29 Other chronic pain; M54.9 Dorsalgia, unspecified; E11.9 Type 2 diabetes mellitus without complications; L71.9 Rosacea, unspecified; E66.01 Morbid (severe) obesity due to excess calories; Z68.38 Body mass index [BMI] 38.0-38.9, adult; F41.9 Anxiety disorder, unspecified; F32.9 Major depressive disorder, single episode, unspecified; F42.9 Obsessive-compulsive disorder, unspecified; E88.81 Metabolic syndrome and other insulin resistance; E78.5 Hyperlipidemia, unspecified; G25.81 Restless legs syndrome; L40.9 Psoriasis, unspecified; M54.30 Sciatica, unspecified side; Z86.14 Personal history of Methicillin resistant Staphylococcus aureus infection; Z79.84 Long term (current) use of oral hypoglycemic drugs
CPT/HCPCS: 58561; A9270; J0131; J7120

== ENCOUNTER 2019-09-10 08:00 | Outpatient (CLI) | payer MEDICARE, OTHER ==
[2019-09-11 12:11] LABS: BILIRUBIN,URINE NEGATIVE (NEGATIVE); GLUCOSE, URINE (UA) NEGATIVE (NEGATIVE); KETONES,URINE (UA) NEGATIVE (NEGATIVE); LEUKOCYTE ESTERASE, URINE SMALL (NEGATIVE); NITRITE,URINE NEGATIVE (NEGATIVE); OCCULT BLOOD,URINE NEGATIVE (NEGATIVE); PH,URINE 5.5 PH (5.0-7.5); PROTEIN,URINE NEGATIVE (NEGATIVE); UROBILINOGEN,URINE 0.2 (NORMAL) E.U./dL (NORMAL)
[2019-09-11 12:12] LABS: CLARITY,URINE HAZY (CLEAR)
[2019-09-11 12:16] LABS: BACTERIA,URINE Rare /HPF (None Seen); RBC,URINE None Seen /HPF (0-5); SQUAMOUS EPITHELIAL CELL,UR FEW Squamous (<= Few)
== END 2019-09-10 23:59 | disposition home or self-care (01) ==
LOC: LAB.R 08:00
PROVIDERS: ATTEND Physician Assistant Medical
DX: R31.9 Hematuria, unspecified (principal)
CPT/HCPCS: 81001; 81002; 81003; 87086

== ENCOUNTER 2019-09-27 07:00 | Outpatient (CLI) | payer MEDICARE, OTHER | END 2019-09-27 23:59 | disposition home or self-care (01) | LOC: LAB.R 07:00 | PROVIDERS: ATTEND Family Medicine | DX: R31.9 Hematuria, unspecified (principal) | CPT/HCPCS: 87077; 87086; 87181 ==

== ENCOUNTER 2019-10-25 08:07 | Outpatient (CLI) | payer MEDICARE, OTHER ==
[2019-10-25 17:48] LABS: BILIRUBIN,URINE NEGATIVE (NEGATIVE); GLUCOSE, URINE (UA) NEGATIVE (NEGATIVE); KETONES,URINE (UA) NEGATIVE (NEGATIVE); LEUKOCYTE ESTERASE, URINE SMALL (NEGATIVE); NITRITE,URINE NEGATIVE (NEGATIVE); OCCULT BLOOD,URINE NEGATIVE (NEGATIVE); PROTEIN,URINE NEGATIVE (NEGATIVE); UROBILINOGEN,URINE 0.2 (NORMAL) E.U./dL (NORMAL)
[2019-10-25 18:09] LABS: CLARITY,URINE HAZY (CLEAR)
[2019-10-25 18:27] LABS: BACTERIA,URINE Few /HPF (None Seen); RBC,URINE 0-5 /HPF (0-5); SQUAMOUS EPITHELIAL CELL,UR MANY Squamous (<= Few)
[2019-10-25 18:28] LABS: CRYSTALS,URINE 6-10 Calcium Oxalate /LPF
== END 2019-10-25 08:08 | disposition home or self-care (01) ==
LOC: LAB.S 08:07
PROVIDERS: ATTEND Physician Assistant Medical
DX: N30.90 Cystitis, unspecified without hematuria (principal)
CPT/HCPCS: 81001; 81003; 87086

== ENCOUNTER 2019-12-21 11:10 | Outpatient (CLI) | payer MEDICARE, OTHER | END 2019-12-21 23:59 | disposition home or self-care (01) | LOC: LAB.R 11:10 | PROVIDERS: ATTEND Registered Nurse | DX: R19.7 Diarrhea, unspecified (principal) | CPT/HCPCS: 87177; 87209 ==

== ENCOUNTER 2020-01-02 08:11 | Outpatient (CLI) | payer MEDICARE, OTHER ==
[2020-01-02 10:55] LABS: CALCIUM 9.6 mg/dL (8.5-10.3)
[2020-01-02 11:26] LABS: HB2 TOTAL 12.7 g/dL; HEMOGLOBIN A1C 0.47 g/dL; HEMOGLOBIN A1C % 5.5 % (4.6-6.2)
== END 2020-01-02 08:12 | disposition home or self-care (01) ==
LOC: LAB.S 08:11
PROVIDERS: ATTEND Registered Nurse
DX: E11.9 Type 2 diabetes mellitus without complications (principal); R19.7 Diarrhea, unspecified
CPT/HCPCS: 36415; 80048; 83036

== ENCOUNTER 2020-07-11 08:23 | Outpatient (CLI) | payer MEDICARE, OTHER ==
[2020-07-11 15:15] LABS: BASOPHILS # (AUTO) 0.1 10^3/uL (0.0-0.1); BASOPHILS % (AUTO) 0.9 %; EOSINOPHILS # (AUTO) 0.2 10^3/uL (0.0-0.7); EOSINOPHILS % (AUTO) 3.3 %; HGB - HEMOGLOBIN 11.9 g/dL (12.0-16.0); LYMPHOCYTES % (AUTO) 28.8 %; MEAN CORPUSCULAR HEMOGLOBIN 26.3 pg (27.0-31.0); MEAN CORPUSCULAR HGB CONC 30.7 g/dL (32.0-36.0); MEAN CORPUSCULAR VOLUME 85.8 fL (81.0-99.0); MEAN PLATELET VOLUME 11.4 fL (7.9-10.8); MONOCYTES # (AUTO) 0.5 10^3/uL (0.0-1.0); MONOCYTES % (AUTO) 6.4 %; NEUTROPHILS # (AUTO) 4.2 10^3/uL (1.5-6.6); NEUTROPHILS % (AUTO) 59.9 %; PLT - PLATELET COUNT 261 10^3/uL (130-450); RED BLOOD COUNT 4.52 10^6/uL (4.20-5.40); RED CELL DISTRIBUTION WIDTH 14.5 % (12.0-15.0); WHITE BLOOD COUNT 7.1 x10^3/uL (4.8-10.8)
[2020-07-11 15:44] LABS: ALBUMIN 3.8 g/dL (3.2-5.5); ALBUMIN/GLOBULIN RATIO 1.2 (1.0-2.2); ALKALINE PHOSPHATASE 113 IU/L (42-121); ALT ALANINE AMINOTRANSFERASE 13 IU/L (10-60); AST ASPARTATE AMINOTRANSFERASE 18 IU/L (10-42); BILIRUBIN,TOTAL 0.6 mg/dL (0.2-1.0); BUN - BLOOD UREA NITROGEN 18 mg/dL (6-20); CALCIUM 9.2 mg/dL (8.5-10.3); CARBON DIOXIDE - CO2 27 mmol/L (21-32); CHLORIDE 101 mmol/L (101-111); CHOL/HDL RATIO 3.9 (<4.4); CHOLESTEROL 213 mg/dL; GLUCOSE 128 mg/dL (70-100); HDL CHOLESTEROL 55 mg/dL; LDL CHOLESTEROL,CALCULATED 137 mg/dL; LDL/HDL RATIO 2.5 (<4.4); SODIUM 138 mmol/L (135-145); TOTAL PROTEIN 6.9 g/dL (6.7-8.2); VLDL CHOLESTEROL 21 mg/dL
[2020-07-11 19:20] LABS: HEMOGLOBIN A1c% 6.3 % (4.27-6.07)
== END 2020-07-11 08:24 | disposition home or self-care (01) ==
LOC: LAB.S 08:23
PROVIDERS: ATTEND Registered Nurse
DX: E11.9 Type 2 diabetes mellitus without complications (principal); R60.0 Localized edema; I10 Essential (primary) hypertension; F41.1 Generalized anxiety disorder; F32.9 Major depressive disorder, single episode, unspecified; E66.01 Morbid (severe) obesity due to excess calories; E78.5 Hyperlipidemia, unspecified; R53.83 Other fatigue; R19.7 Diarrhea, unspecified
CPT/HCPCS: 36415; 80053; 80061; 83036; 83721; 84443; 85025

== ENCOUNTER 2020-07-30 07:00 | Outpatient (CLI) | payer MEDICARE, OTHER | END 2020-07-30 07:01 | disposition home or self-care (01) | LOC: LAB.R 07:00 | PROVIDERS: ATTEND Registered Nurse | DX: R19.7 Diarrhea, unspecified (principal) | CPT/HCPCS: 87177; 87209 ==

== ENCOUNTER 2020-12-17 07:29 | Outpatient (CLI) | payer MEDICARE, OTHER ==
[2020-12-17 14:28] LABS: BASOPHILS # (AUTO) 0.1 10^3/uL (0.0-0.1); BASOPHILS % (AUTO) 1.1 %; EOSINOPHILS # (AUTO) 0.2 10^3/uL (0.0-0.7); HGB - HEMOGLOBIN 12.5 g/dL (12.0-16.0); LYMPHOCYTES % (AUTO) 29.4 %; MEAN CORPUSCULAR HEMOGLOBIN 28.4 pg (27.0-31.0); MEAN CORPUSCULAR HGB CONC 32.2 g/dL (32.0-36.0); MEAN CORPUSCULAR VOLUME 88.2 fL (81.0-99.0); MONOCYTES # (AUTO) 0.4 10^3/uL (0.0-1.0); MONOCYTES % (AUTO) 5.6 %; NEUTROPHILS % (AUTO) 60.4 %; PLT - PLATELET COUNT 260 10^3/uL (130-450); RED CELL DISTRIBUTION WIDTH 13.3 % (12.0-15.0); WHITE BLOOD COUNT 6.6 x10^3/uL (4.8-10.8)
[2020-12-17 15:00] LABS: CREATININE,URINE 140.5 mg/dL; MICROALBUM/CREATININE RATIO,UR 10.7 ug/mg (<30.0); MICROALBUMIN,URINE 1.5 mg/dL (0-300.0)
[2020-12-17 15:03] LABS: % IRON SATURATION 16 % (20-50); ALBUMIN 4.1 g/dL (3.2-5.5); ALBUMIN/GLOBULIN RATIO 1.5 (1.0-2.2); ALKALINE PHOSPHATASE 99 IU/L (42-121); ALT ALANINE AMINOTRANSFERASE 14 IU/L (10-60); AST ASPARTATE AMINOTRANSFERASE 18 IU/L (10-42); BILIRUBIN,TOTAL 0.6 mg/dL (0.2-1.0); BUN - BLOOD UREA NITROGEN 24 mg/dL (6-20); CALCIUM 9.8 mg/dL (8.5-10.3); CARBON DIOXIDE - CO2 26 mmol/L (21-32); CHLORIDE 98 mmol/L (101-111); CHOL/HDL RATIO 4.2 (<4.4); CHOLESTEROL 220 mg/dL; CREATININE 1.2 mg/dL (0.4-1.0); GLUCOSE 122 mg/dL (70-100); HDL CHOLESTEROL 53 mg/dL; IRON 66 ug/dL (28-170); LDL CHOLESTEROL,CALCULATED 133 mg/dL; LDL/HDL RATIO 2.5 (<4.4); TOTAL IRON BINDING CAPACITY 407 ug/dL (250-450); TOTAL PROTEIN 6.8 g/dL (6.7-8.2); TRANSFERRIN 291 mg/dL (192-382); VLDL CHOLESTEROL 34 mg/dL
[2020-12-17 15:12] LABS: FERRITIN 25.9 ng/mL (11.0-306.8)
== END 2020-12-17 07:30 | disposition home or self-care (01) ==
LOC: LAB.S 07:29
PROVIDERS: ATTEND Registered Nurse
DX: E11.9 Type 2 diabetes mellitus without complications (principal); I10 Essential (primary) hypertension; F41.1 Generalized anxiety disorder; F32.9 Major depressive disorder, single episode, unspecified; E78.5 Hyperlipidemia, unspecified; G25.81 Restless legs syndrome
CPT/HCPCS: 36415; 80053; 80061; 82043; 82570; 82728; 83036; 83540; 83721; 84443; 84466; 85025

== ENCOUNTER 2021-10-16 07:24 | Outpatient (CLI) | payer MEDICARE, OTHER ==
[2021-10-16 15:40] LABS: CALCIUM 9.3 mg/dL (8.5-10.3); CREATININE 1.2 mg/dL (0.4-1.0); POTASSIUM 4.7 mmol/L (3.5-5.0)
== END 2021-10-16 07:25 | disposition home or self-care (01) ==
LOC: LAB.S 07:24
PROVIDERS: ATTEND Internal Medicine Rheumatology
DX: R79.89 Other specified abnormal findings of blood chemistry (principal)
CPT/HCPCS: 36415; 80048

== ENCOUNTER 2021-12-01 07:51 | Outpatient (CLI) | payer MEDICARE, OTHER ==
[2021-12-01 15:44] LABS: CALCIUM 9.2 mg/dL (8.5-10.3); CREATININE 1.1 mg/dL (0.4-1.0); POTASSIUM 4.5 mmol/L (3.5-5.0)
[2021-12-01 16:00] LABS: CREATININE,URINE 234.3 mg/dL; MICROALBUM/CREATININE RATIO,UR 14.1 ug/mg (<30.0); MICROALBUMIN,URINE 3.3 mg/dL (0-300.0)
[2021-12-01 17:06] LABS: ESTIMATED AVERAGE GLUCOSE 137 mg/dL (70-100); HEMOGLOBIN A1c% 6.4 % (4.27-6.07)
== END 2021-12-01 07:52 | disposition home or self-care (01) ==
LOC: LAB.S 07:51
PROVIDERS: ATTEND Registered Nurse
DX: E11.9 Type 2 diabetes mellitus without complications (principal)
CPT/HCPCS: 36415; 80048; 82043; 82570; 83036

== ENCOUNTER 2022-06-10 08:00 | Outpatient (CLI) | payer MEDICARE, OTHER ==
--- NOTE | 2022-06-10 15:32 | XRAY Report ---
PROCEDURE: Cervical Spine 2 View INDICATIONS: NECK PAIN/RIGHT ARM PAIN TECHNIQUE: 3 view(s) of the cervical spine were acquired. COMPARISON: None. FINDINGS: Bones: No fractures or dislocations to the C7-T1 level. The lateral masses of C1 appear intact on t he odontoid view. No suspicious bony lesions. There is trace anterolisthesis of C3 on C4. Severe di sc space narrowing is present at C4-5, moderate to severe C5-6 and C6-7. Prominent anterior osteophyt es are noted at C4, C5 and to a lesser degree C6 and C7. Prominent multilevel uncovertebral arthropat hy is present particularly within the mid cervical spine. Soft tissues: No prevertebral soft tissue swelling. IMPRESSION: Multilevel degenerative changes most severe at C4-5. As clinically indicated, MRI cervic al spine may be obtained for evaluation of foraminal narrowing. Reviewed by: Sol Perez MD on 06/10/2022 3:31 PM PDT Approved by: Sol Perez MD on 06/10/2022 3:31 PM PDT Station ID: [id number]
== END 2022-06-10 23:59 | disposition home or self-care (01) ==
LOC: DI.S 08:00
PROVIDERS: ATTEND Physician Assistant
DX: M47.812 Spondylosis without myelopathy or radiculopathy, cervical region (principal)

== ENCOUNTER 2022-08-04 07:40 | Outpatient (CLI) | payer MEDICARE, OTHER | END 2022-08-04 07:41 | disposition home or self-care (01) | LOC: DI 07:40 | PROVIDERS: ATTEND Internal Medicine Cardiovascular Disease | DX: R94.31 Abnormal electrocardiogram [ECG] [EKG] (principal) | CPT/HCPCS: 93306 ==

== ENCOUNTER 2022-10-18 13:48 | Outpatient (CLI) | payer MEDICARE, OTHER ==
--- NOTE | 2022-10-18 11:39 | XRAY Report ---
PROCEDURE: Chest 2 View X-Ray INDICATIONS: PRODUCTIVE COUGH TECHNIQUE: 2 views of the chest were acquired. COMPARISON: 08/14/2019 FINDINGS: Surgical changes and devices: None. Lungs and pleura: No pleural effusions or pneumothorax. Lungs are clear. Mediastinum: Mediastinal contours are normal. Heart size is normal. Bones and chest wall: There is an age-indeterminate moderate wedge compression fracture involving the lower thoracic spine that does does appear new from prior examination of August 14, 2019. If further evaluation to date this compression fractures of clinical concern an MRI of the thoracic spine may b e of further clinical value. IMPRESSION: 1. No evidence for active disease in the chest. 2. Moderate age-indeterminate wedge compression fracture involving the lower thoracic spine new from prior examination August 14, 2019. Reviewed by: Mega Perdomo MD on 10/18/2022 11:38 AM PST Approved by: Mega Perdomo MD on 10/18/2022 11:38 AM PST Station ID: [id number]
== END 2022-10-18 13:49 | disposition home or self-care (01) ==
LOC: DI.S 13:48
PROVIDERS: ATTEND Physician Assistant
DX: R05.8 Other specified cough (principal); M48.54XA Collapsed vertebra, not elsewhere classified, thoracic region, initial encounter for fracture

== ENCOUNTER 2022-10-26 13:41 | Outpatient (CLI) | payer MEDICARE, OTHER ==
--- NOTE | 2022-10-26 21:49 | XRAY Report ---
PROCEDURE: Knee 2 View RT INDICATIONS: PAIN IN RIGHT KNEE TECHNIQUE: 2 views of the right knee(s) were acquired. COMPARISON: None. FINDINGS: Bones: No fractures or dislocations. Moderate tricompartmental osteoarthritis is seen most notable i n medial femoral tibial compartment. No suspicious bony lesions. Soft tissues: Small suprapatellar joint effusion is seen. Mild chondrocalcinosis in medial and later al femoral tibial compartment is seen.. 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 Mild chondrocalcinosis and small joint effusion. Reviewed by: Lzaarus Knox MD on 10/26/2022 9:48 PM PST Approved by: Lazarus Knox MD on 10/26/2022 9:48 PM PST Station ID: [id number]
== END 2022-10-26 13:42 | disposition home or self-care (01) ==
LOC: DI.S 13:41
PROVIDERS: ATTEND Nurse Practitioner
DX: M17.11 Unilateral primary osteoarthritis, right knee (principal); M11.261 Other chondrocalcinosis, right knee; M25.461 Effusion, right knee

== ENCOUNTER 2022-11-23 08:13 | Outpatient (CLI) | payer MEDICARE, OTHER ==
--- NOTE | 2022-11-23 17:11 | DEXA Report ---
PROCEDURE: Dexa Spine and/or Hip INDICATIONS: POST MENOPAUSAL TECHNIQUE: Dual energy x-ray absorptiometry (DXA) was performed on a [employer] System. Regions measur ed are the AP Spine, femoral neck, and if needed forearm. COMPARISON: None. FINDINGS: Lumbar Spine: Bone Mineral Density 1.37 g/cm/cm,T score 1.7, moderate osteopenia Left Femoral Neck: Bone Mineral Density 0.73 g/cm/cm, T score -1.8, moderate osteopenia Left Hip: Bone Mineral Density 0.768 g/cm/cm,T score -1.9, moderate osteopenia (T score greater or equal to -1.0: NORMAL) (T score from -1.1 to -2.4: OSTEOPENIA) (T score less than or equal to -2.5 to: OSTEOPOROSIS) Impression: Moderate osteopenia as above. Patients with diagnosis of osteoporosis or osteopenia should have regular bone mineral density assess ment. For those eligible for Medicare, routine testing is allowed once every 2 years. Testing frequ ency can be increased for patients who have rapidly progressing disease or for those who are receivin g medical therapy to restore bone mass. Reviewed by: Sol Perez MD on 11/23/2022 5:10 PM PST Approved by: Sol Perez MD on 11/23/2022 5:10 PM PST Station ID: [id number]
== END 2022-11-23 08:14 | disposition home or self-care (01) ==
LOC: DI 08:13
PROVIDERS: ATTEND Registered Nurse
DX: M85.89 Other specified disorders of bone density and structure, multiple sites (principal); Z78.0 Asymptomatic menopausal state

== ENCOUNTER 2022-12-04 10:52 | Outpatient (CLI) | payer MEDICARE, OTHER ==
[2022-12-04 11:20] LABS: BASOPHILS # (AUTO) 0.1 10^3/uL (0.0-0.1); BASOPHILS % (AUTO) 0.7 %; EOSINOPHILS # (AUTO) 0.4 10^3/uL (0.0-0.7); EOSINOPHILS % (AUTO) 4.3 %; HCT - HEMATOCRIT 40.3 % (37.0-47.0); HGB - HEMOGLOBIN 12.7 g/dL (12.0-16.0); LYMPHOCYTES # (AUTO) 2.3 10^3/uL (1.5-3.5); LYMPHOCYTES % (AUTO) 25.9 %; MEAN CORPUSCULAR HEMOGLOBIN 27.2 pg (27.0-31.0); MEAN CORPUSCULAR HGB CONC 31.5 g/dL (32.0-36.0); MEAN CORPUSCULAR VOLUME 86.3 fL (81.0-99.0); MONOCYTES # (AUTO) 0.4 10^3/uL (0.0-1.0); NEUTROPHILS # (AUTO) 5.6 10^3/uL (1.5-6.6); NEUTROPHILS % (AUTO) 63.6 %; PLT - PLATELET COUNT 328 10^3/uL (130-450); RED BLOOD COUNT 4.67 10^6/uL (4.20-5.40); RED CELL DISTRIBUTION WIDTH 13.7 % (12.0-15.0); WHITE BLOOD COUNT 8.8 x10^3/uL (4.8-10.8)
[2022-12-04 11:36] LABS: ALBUMIN 4.1 g/dL (3.2-5.5); ALBUMIN/GLOBULIN RATIO 1.1 (1.0-2.2); ALKALINE PHOSPHATASE 91 IU/L (42-121); ALT ALANINE AMINOTRANSFERASE 20 IU/L (10-60); AST ASPARTATE AMINOTRANSFERASE 23 IU/L (10-42); BILIRUBIN,TOTAL 0.8 mg/dL (0.2-1.0); BUN - BLOOD UREA NITROGEN 27 mg/dL (6-20); CALCIUM 9.3 mg/dL (8.5-10.3); CARBON DIOXIDE - CO2 26 mmol/L (21-32); CHLORIDE 103 mmol/L (101-111); CHOL/HDL RATIO 3.8 (<4.4); CHOLESTEROL 183 mg/dL; CREATININE 1.3 mg/dL (0.4-1.0); GFR - MDRD 40 (>89); GLUCOSE 125 mg/dL (70-100); HDL CHOLESTEROL 48 mg/dL; LDL CHOLESTEROL,CALCULATED 110 mg/dL; LDL/HDL RATIO 2.3 (<4.4); POTASSIUM 4.4 mmol/L (3.5-5.0); SODIUM 138 mmol/L (135-145); TOTAL PROTEIN 7.8 g/dL (6.7-8.2); TRIGLYCERIDES 127 mg/dL; VLDL CHOLESTEROL 25 mg/dL
[2022-12-04 11:45] LABS: CREATININE,URINE 106.1 mg/dL; MICROALBUM/CREATININE RATIO,UR 30.2 ug/mg (<30.0); MICROALBUMIN,URINE 3.2 mg/dL (0-300.0)
[2022-12-04 11:48] LABS: THYROID STIMULATING HORMONE 1.96 uIU/mL (0.34-5.60)
[2022-12-04 21:57] LABS: ESTIMATED AVERAGE GLUCOSE 134 mg/dL (70-100); HEMOGLOBIN A1c% 6.3 % (4.27-6.07)
== END 2022-12-04 10:53 | disposition home or self-care (01) ==
LOC: LAB 10:52
PROVIDERS: ATTEND Registered Nurse
DX: I10 Essential (primary) hypertension (principal); E11.9 Type 2 diabetes mellitus without complications; E78.5 Hyperlipidemia, unspecified
CPT/HCPCS: 36415; 80053; 80061; 82043; 82570; 83036; 83721; 84443; 85025

== ENCOUNTER 2023-02-01 12:54 | Outpatient (CLI) | payer MEDICARE, OTHER ==
--- NOTE | 2023-02-01 11:54 | XRAY Report ---
PROCEDURE: Knee 4 View RT INDICATIONS: RIGHT KNEE PAIN TECHNIQUE: 4 views of the right knee(s) were acquired. Single frontal view of the left knee also in cluded COMPARISON: 10/26/2022 FINDINGS: Bones: No acute fracture or dislocation identified. Moderate medial and lateral compartment joint sp ian narrowing. Moderate-severe patellofemoral compartment narrowing. Spurring also present at the pat ellofemoral compartment. Medial and lateral compartment narrowing of the left knee also present. Soft tissues: Possible small joint effusion. No suspicious soft tissue calcifications. IMPRESSION: Tricompartmental degenerative changes of the right knee. Possible small nonspecific knee effusion. Reviewed by: Rob Banks MD on 02/01/2023 11:52 AM PDT Approved by: Rob Banks MD on 02/01/2023 11:52 AM PDT Station ID: [id number]
== END 2023-02-01 12:55 | disposition home or self-care (01) ==
LOC: DI.WOS 12:54
PROVIDERS: ATTEND Physician Assistant Surgical
DX: M17.11 Unilateral primary osteoarthritis, right knee (principal)

== ENCOUNTER 2023-05-14 07:26 | Outpatient (CLI) | payer MEDICARE, OTHER | END 2023-05-14 23:59 | disposition critical access hospital (66) | LOC: EMS 07:26 | DX: R07.89 Other chest pain (principal); M54.2 Cervicalgia; R68.84 Jaw pain | CPT/HCPCS: A0425; A0427 ==

== ENCOUNTER 2023-12-26 08:22 | Outpatient (CLI) | payer MEDICARE, OTHER ==
[2023-12-26 15:13] LABS: BASOPHILS # (AUTO) 0.1 10^3/uL (0.0-0.1); BASOPHILS % (AUTO) 0.9 %; EOSINOPHILS # (AUTO) 0.4 10^3/uL (0.0-0.7); EOSINOPHILS % (AUTO) 4.5 %; HCT - HEMATOCRIT 39.2 % (37.0-47.0); HGB - HEMOGLOBIN 11.8 g/dL (12.0-16.0); LYMPHOCYTES # (AUTO) 1.7 10^3/uL (1.5-3.5); LYMPHOCYTES % (AUTO) 22.1 %; MEAN CORPUSCULAR HEMOGLOBIN 26.5 pg (27.0-31.0); MEAN CORPUSCULAR HGB CONC 30.1 g/dL (32.0-36.0); MEAN CORPUSCULAR VOLUME 88.1 fL (81.0-99.0); MONOCYTES # (AUTO) 0.5 10^3/uL (0.0-1.0); MONOCYTES % (AUTO) 6.1 %; NEUTROPHILS # (AUTO) 5.2 10^3/uL (1.5-6.6); NEUTROPHILS % (AUTO) 66.1 %; PLT - PLATELET COUNT 319 10^3/uL (130-450); RED BLOOD COUNT 4.45 10^6/uL (4.20-5.40); RED CELL DISTRIBUTION WIDTH 14.4 % (12.0-15.0); WHITE BLOOD COUNT 7.8 x10^3/uL (4.8-10.8)
[2023-12-26 16:17] LABS: ALBUMIN 3.8 g/dL (3.2-5.5); ALBUMIN/GLOBULIN RATIO 1.5 (1.0-2.2); ALKALINE PHOSPHATASE 115 IU/L (42-121); ALT ALANINE AMINOTRANSFERASE 14 IU/L (10-60); AST ASPARTATE AMINOTRANSFERASE 16 IU/L (10-42); BILIRUBIN,TOTAL 0.5 mg/dL (0.2-1.0); BUN - BLOOD UREA NITROGEN 17 mg/dL (6-20); CALCIUM 9.3 mg/dL (8.5-10.3); CARBON DIOXIDE - CO2 29 mmol/L (21-32); CHLORIDE 105 mmol/L (101-111); CHOL/HDL RATIO 2.5 (<4.4); CHOLESTEROL 119 mg/dL; GFR - MDRD 54 (>89); GLUCOSE 127 mg/dL (74-104); HDL CHOLESTEROL 47 mg/dL; LDL CHOLESTEROL,CALCULATED 53 mg/dL; LDL/HDL RATIO 1.1 (<4.4); POTASSIUM 4.6 mmol/L (3.5-4.5); SODIUM 139 mmol/L (135-145); TOTAL PROTEIN 6.4 g/dL (6.4-8.9); TRIGLYCERIDES 95 mg/dL (48-352); VLDL CHOLESTEROL 19 mg/dL
[2023-12-26 22:02] LABS: ESTIMATED AVERAGE GLUCOSE 140 mg/dL (70-100); HEMOGLOBIN A1c% 6.5 % (4.27-6.07)
== END 2023-12-26 08:23 | disposition home or self-care (01) ==
LOC: LAB.S 08:22
PROVIDERS: ATTEND Registered Nurse
DX: I12.9 Hypertensive chronic kidney disease with stage 1 through stage 4 chronic kidney disease, or unspecified chronic kidney disease (principal); E11.22 Type 2 diabetes mellitus with diabetic chronic kidney disease; N18.30 Chronic kidney disease, stage 3 unspecified; E78.5 Hyperlipidemia, unspecified
CPT/HCPCS: 36415; 80053; 80061; 83036; 83721; 85025

== ENCOUNTER 2024-02-09 09:27 | Outpatient (CLI) | payer MEDICARE, OTHER ==
--- NOTE | 2024-02-10 09:51 | Ultrasound Report ---
LIMITED ULTRASOUND OF RIGHT BREAST: 02/09/2024 CLINICAL: Palpable right breast lump. Comparison is made to exams dated: 02/09/2024 mammogram, 04/18/2022 mammogram, 01/19/2019 mammogram, 04/06 mammogram, 08/08/2014 mammogram, and 07/27/2013 mammogram - [facility]. Ultrasound of the right breast 2 o'clock region was performed. Sinclair scale images of the real-time ex amination were reviewed. No significant abnormalities were seen sonographically in the right breast. IMPRESSION: PROBABLY BENIGN There is no abnormality seen in the right breast to correspond with the area of clinical concern at 2 o'clock, however, clinical correlation and clinical followup are recommended. A follow-up mammogram in 6 months is recommended to demonstrate stability of the grouped calcificatio ns in the UOQ, which are slightly more prominent than 202. This exam was interpreted at Station ID: [id number]. Electronically Signed By: Jet Llamas M.D. lc/:02/09/2024 11:46:30 Ultrasound BI-RADS: 3 Probably benign BI-RADS CATEGORY: (3) - 3 Mammogram [id number] 6 month follow-up LATERALITY: (B)
--- NOTE | 2024-02-10 09:51 | Mammography Report ---
BILATERAL DIGITAL DIAGNOSTIC MAMMOGRAM 3D/2D WITH LATEROMEDIAL: 02/09/2024 CLINICAL: Palpable right breast lump by physician. Due for bilateral exam. Comparison is made to exams dated: 04/18/2022 mammogram, 01/19/2019 mammogram, 04/06/2017 mammogram, and 08/08/2014 mammogram - [facility]. Both breasts are heterogeneously dense, which may obscure small masses (category c / 51-75% glandular tissue). There are grouped calcifications in the right breast at 10 o'clock middle depth, slightly more promin ent. No other significant masses, calcifications, or other findings are seen in either breast. IMPRESSION: INCOMPLETE: NEEDS ADDITIONAL IMAGING EVALUATION The grouped calcifications in the right breast are probably benign, slightly more prominent than prio r. There is no abnormality seen in the right breast to correspond with the area of clinical concern at 2 o'clock, however, ultrasound is recommended. Based on the Tyrer Cuzick model (a risk assessment model) the patient's lifetime risk is 3.9% and her 10 year risk is 0.0%. According to the ACR, ACS, and NCCN guidelines, an annual breast MRI exam kenny g with mammogram is recommended if the patient's lifetime risk is 20% or greater. This exam was interpreted at Station ID: [id number]. NOTE: For mammograms, a report in lay terms will be sent to the patient. Approximately 15% of breast malignancies will not be visualized mammographically. In the management of a palpable breast mass, a negative mammogram must not discourage biopsy of a clinically suspicious lesion. Electronically Signed By: Jet Llamas M.D. lc/:02/09/2024 11:45:29 ACR BI-RADS Category 0: Incomplete 3340F PARENCHYMAL PATTERN: (D) - The breast(s) demonstrate(s) heterogeneously dense fibroglandular parenchy ma. BI-RADS CATEGORY: (0) - 0 Ultrasound [id number] Immediate follow-up LATERALITY: (B)
== END 2024-02-09 09:28 | disposition home or self-care (01) ==
LOC: DI 09:27
PROVIDERS: ATTEND Registered Nurse
DX: N63.12 Unspecified lump in the right breast, upper inner quadrant (principal); R92.1 Mammographic calcification found on diagnostic imaging of breast

== ENCOUNTER 2024-06-09 10:59 | Outpatient (CLI) | payer MEDICARE, OTHER | END 2024-06-09 23:58 | disposition critical access hospital (66) | LOC: EMS 10:59 | DX: K92.1 Melena (principal); R61 Generalized hyperhidrosis; R06.02 Shortness of breath | CPT/HCPCS: A0425; A0427 ==

== ENCOUNTER 2024-06-09 11:39 | Emergency (ER) | payer MEDICARE, OTHER ==
--- NOTE | 2024-06-09 11:54 | ED Physician Documentation ---
History of Present Illness - Stated complaint Stated Complaint: GIB - Additonal information Additional information: Patient is a 79-year-old female presenting to the emergency department with 3 episodes of black stools with bright red blood in them prior to coming to the emergency department. She notes around 8 AM she started to feel dizzy lightheaded. She started to feel diaphoretic as well and shortly after had a bowel movement that was mainly diarrhea and was dark. She notes about a week ago she had noted a large balloon around her rectum but she notes this has significantly decreased in size lately. She denies any history of hemorrhoids she denies any abdominal pain but does describe heaviness to her lower abdomen. She denies any nausea vomiting or hematemesis. She notes she was recently started on an antibiotic for some dental work performed on she discontinued her Plavix on Tuesday for this dental work and has not could not continued it since then. She notes the diarrhea has been more light brown but today was the first episode of black stools with bright red blood in it. She is not on any other blood thinners. She denies any fevers chills she has been eating significantly less due to her dental tooth instructions and has been mainly on a liquid diet. PD PAST MEDICAL HISTORY - Past Medical History Cardiovascular: Hypertension, High cholesterol Endocrine/Autoimmune: Type 2 diabetes Psych: Depression, Anxiety Musculoskeletal: Chronic back pain Derm: Rosacea - Past Surgical History General: Cholecystectomy Ortho: Carpal Tunnel surgery, Spine surgery, Other /[employer]EC[employer]: Dilation and currettage - Present Medications Home Medications: Ambulatory Orders Medication Instructions Recorded Confirmed Oxycodone HCl/Acetaminophen 1 - 2 each PO Q6H PRN #14 tablet 07/31/19 08/15/19 [Percocet 5-325 mg Tablet] Pramipexole [Mirapex] 0.75 mg PO DAILY 07/31/19 08/15/19 SITagliptin [Januvia] 100 mg PO DAILY 07/31/19 Venlafaxine ER [Effexor ER] 150 mg PO DAILY 07/31/19 08/15/19 lisinopriL [Lisinopril] 40 mg PO DAILY 07/31/19 08/15/19 metFORMIN [Glucophage] 500 mg PO BID 07/31/19 08/15/19 Lactobacillus Acidophilus 1 each PO DAILY #10 cap 06/09/24 [Acidophilus Lactobacilli] - Allergies Allergies/Adverse Reactions: Allergies Allergy/AdvReac Type Severity Reaction Status Date / Time codeine Allergy Anaphylaxis Verified 06/09/24 11:49 morphine Allergy Anaphylaxis Verified 06/09/24 11:49 Penicillins Allergy Itching Verified 06/09/24 11:49 - Social History Does the pt smoke?: No Smoking Status: Never smoker PD ED PE NORMAL - Vitals Vital signs reviewed: Yes - General General: Alert and oriented X 3 - HEENT HEENT: Atraumatic, PERRL, Ears normal, Moist mucous membranes, Pharynx benign - Neck Neck: Supple, no meningeal sign, No adenopathy - Cardiac Cardiac: RRR, No gallop, No rub, Strong equal pulses - Respiratory Respiratory: No respiratory distress, Clear bilaterally - Abdomen Abdomen: Normal bowel sounds, Other (Reproducible lower abdominal tenderness on examination with active bowel sounds on auscultation of the abdomen. No rebound or guarding appreciated.) - Rectal Rectal: Other (Rectal exam shows external nonthrombosed nonbleeding hemorrhoid no palpable internal hemorrhoids noted. Guaiac does show dark black stool on examination.) Results - Vitals Vitals: Vital Signs - 24 hr 06/09/24 06/09/24 06/09/24 11:49 12:08 14:00 Temperature 36.1 C L Heart Rate 85 72 70 Respiratory 18 14 18 Rate Blood Pressure 183/98 H 149/82 H 167/69 H O2 Saturation 98 99 100 06/09/24 06/09/24 14:07 14:25 Temperature Heart Rate 74 72 Respiratory 16 17 Rate Blood Pressure 167/69 H 105/80 O2 Saturation 100 98 Oxygen O2 Source Room air - Labs Labs: Microbiology 06/09/24 12:07 Occult Blood - Final Stool Laboratory Tests 06/09/24 06/09/24 06/09/24 12:25 12:25 12:25 WBC 6.4 RBC 4.29 Hgb 11.6 L Hct 35.6 L MCV 83.0 MCH 27.0 MCHC 32.6 RDW 14.0 Plt Count 242 MPV 10.9 H Neut # (Auto) 4.9 Lymph # (Auto) 1.0 L Hodgeman # (Auto) 0.4 Eos # (Auto) 0.1 Baso # (Auto) 0.1 Absolute Nucleated RBC 0.00 Nucleated RBC % 0.0 PT 12.4 INR 1.1 APTT 29.7 Sodium 137 Potassium 4.6 H Chloride 105 Carbon Dioxide 23 Anion Gap 9.0 BUN 28 H Creatinine 1.3 Estimated GFR (MDRD) 40 L Glucose 164 H Calcium 9.8 Magnesium 1.7 Total Bilirubin 0.6 AST 21 ALT 17 Alkaline Phosphatase 120 Total Protein 6.9 Albumin 4.1 Globulin 2.8 Albumin/Globulin Ratio 1.5 Lipase 11 PD Medical Decision Making - ED course Complexity details: reviewed old records, reviewed results ED course: Patient is a 79-year-old female presenting to the emergency department after 3 episodes of dark diarrhea that started this morning with some bright red blood in her stools but she notes she recently was started on antibiotic for recent dental work as she discontinued her Plavix on Tuesday for this dental work. She notes today was the first episodes of dark black stool. Patient also is reporting some lower abdominal cramping and heaviness but no specific abdominal pain. She notes she is not on any blood thinners other than the Plavix. No history of GI bleed. She has been having some diarrhea ever since starting this antibiotic earlier this week. She denies any fevers chills. Vital stable on arrival. Patient normotensive nontachycardic. Abdomen is tender to lower abdomen but soft without rebound or guarding noted. Rectal exam does show nonthrombosed nonbleeding external hemorrhoid around the 12 o'clock position. No palpable internal hemorrhoids chronic does show dark black stool. Labs here in the emergency department showed no significant drop in hemoglobin. Patient's baseline hemoglobin around 11 patient today at 11.3. No prolonged coags. Patient with mild hyperkalemia at 4.6 patient given on fluids here in the emergency department symptoms could be secondary to dehydration however no significant ASHLEY on arrival. Patient's guaiac test came back negative as well she is not on blood thinners. Patient received 1 L of fluids here in the emergency department she notes feeling significantly better no feelings of dizziness or lightheadedness. She denies any persistent symptoms no episodes of diarrhea while here in the emergency department. Discussed with patient symptoms could be secondary to dehydration given recent diarrhea with antibiotic she will be given prescription for probiotic and instructed to drink lots of fluids at home. Patient feels safe to go back to his facility. Instructed patient to watch for any fevers chills abdominal pain nausea vomiting shortness of breath dizziness that persists or any other new or worsening symptoms. Patient is agreeable with this plan. Departure - Departure Disposition: 01 Home, Self Care Clinical Impression: Diarrhea, Dehydration Condition: Good Prescriptions: Lactobacillus Acidophilus [Acidophilus Lactobacilli] 1 each PO DAILY #10 cap
[2024-06-09 12:31] LABS: BASOPHILS # (AUTO) 0.1 10^3/uL (0.0-0.1); BASOPHILS % (AUTO) 0.8 %; EOSINOPHILS # (AUTO) 0.1 10^3/uL (0.0-0.7); EOSINOPHILS % (AUTO) 0.9 %; HCT - HEMATOCRIT 35.6 % (37.0-47.0); HGB - HEMOGLOBIN 11.6 g/dL (12.0-16.0); LYMPHOCYTES % (AUTO) 15.2 %; MEAN CORPUSCULAR HGB CONC 32.6 g/dL (32.0-36.0); MEAN PLATELET VOLUME 10.9 fL (7.9-10.8); MONOCYTES # (AUTO) 0.4 10^3/uL (0.0-1.0); MONOCYTES % (AUTO) 5.5 %; NEUTROPHILS # (AUTO) 4.9 10^3/uL (1.5-6.6); NEUTROPHILS % (AUTO) 76.8 %; PLT - PLATELET COUNT 242 10^3/uL (130-450); RED BLOOD COUNT 4.29 10^6/uL (4.20-5.40); WHITE BLOOD COUNT 6.4 x10^3/uL (4.8-10.8)
[2024-06-09 12:39] LABS: PARTIAL THROMBOPLASTIN TIME 29.7 secs (24.9-33.3)
[2024-06-09 12:43] LABS: INR 1.1 (0.8-1.2); PT - PROTHROMBIN TIME 12.4 secs (9.9-12.6)
[2024-06-09 12:45] LABS: ALBUMIN 4.1 g/dL (3.2-5.5); ALBUMIN/GLOBULIN RATIO 1.5 (1.0-2.2); BILIRUBIN,TOTAL 0.6 mg/dL (0.2-1.0); CALCIUM 9.8 mg/dL (8.5-10.3); CREATININE 1.3 mg/dL (0.6-1.3); MAGNESIUM 1.7 mg/dL (1.7-2.3); POTASSIUM 4.6 mmol/L (3.5-4.5); TOTAL PROTEIN 6.9 g/dL (6.4-8.9)
[2024-06-09] MEDS: ONDANSETRON 4 MG/2 ML VIAL IVP STA (13:25)
[2024-06-09 15:25] VITALS: BP 123/78; O2SAT 96
[2024-06-10] MEDS ORDERED: LACTOBACILLUS RHAMNOSUS GG CAPSULE PO SCH (09:00)
== END 2024-06-09 15:15 | disposition home or self-care (01) ==
LOC: ED 11:39
DX: R19.7 Diarrhea, unspecified (principal); E86.0 Dehydration; E87.5 Hyperkalemia; K92.1 Melena; K64.4 Residual hemorrhoidal skin tags; Z79.02 Long term (current) use of antithrombotics/antiplatelets
CPT/HCPCS: 36415; 80053; 82272; 83690; 83735; 85025; 85610; 85730; 93005; 96374; 99283